=== PATIENT | female | born 1975 | race African-American/Black ===

== ENCOUNTER 2018-01-09 19:10 | Inpatient (IN) ==
--- NOTE | 2018-01-09 19:46 | ED ---
History of Present Illness Primary Care Physician: NOT REQUIRED History of Present Illness: HPI: 42 year-old , with YAO of 04-24-2018 therefore at 25 weeks EGA. Presents with vaginal spotting that started today at 7:20 PM. Patient states that she wants to the bathroom and wiped and saw a speck of blood. She then voided bloody urine. Confirms sexual intercourse on Tuesday. She denies any contractions or gush of fluid. She confirms movements. She is morbidly Obese. Denies any abdominal pain. care: Seen by Dr. Greene starting at 14 weeks. Patient has had an uncomplicated course. No UTIs. Denies a diagnosis of Gestational diabetes and preeclampsia. OB Hx: Previous (15 weeks ago). No Placenta Previa. [employer]IC[employer] Hx: No abnormal Paps, no history of STDs. PMH: Sickle cell trait, history of fibroid (5.25 x 7.7 cm) Allergies: NKDA Meds: vitamins. Social history: No tobacco, alcohol or drug abuse during pregancy. Review of Systems All other systems reviewed negative except as stated in HPI PMFSH - History History Provided By: Patient - Medical History Medical History: Medical History (Last Updated 10/05/17 @ 06:03 by Waldemar Contreras) Patient denies medical problems Medications and Allergies Allergies Allergy/AdvReac Type Severity Reaction Status Date / Time No Known Allergies Allergy none Uncoded 01/09/18 21:10 Home Medications Medication Instructions Recorded Confirmed Type PNV cmb#95-ferrous fumarate-FA 1 tab PO DAILY 01/09/18 01/09/18 History [] aspirin [Aspirin Low Dose] 1 tab PO DAILY 01/09/18 01/09/18 History ferrous sulfate [Iron (ferrous 1 tab PO BID 01/09/18 01/09/18 History sulfate)] Exam Narrative: GENERAL: Well-nourished, well-developed patient. SKIN: Warm and dry. HEAD: Normocephalic and atraumatic. EYES: No scleral icterus. No injection or drainage. ENT: No nasal drainage noted. Mucous membranes pink. Airway patent. NECK: Supple, trachea midline. No JVD.. ABDOMEN/GI: Abdomen soft, non-tender, bowel sounds present, no rebound, no guarding Gravid to 25 weeks size GENITOURINARY: External Genitalia: intact and normal in appearance Cervix: posterior, thick, closed. Presentation: breech via ultrasound Membranes: ruptured. Uterine Contractions: none. Results - Labs CBC & Chem 7: 01/09/18 20:40 Assessment and Plan - Diagnosis (1) Vaginal spotting Code(s): N93.9 - Abnormal uterine and vaginal bleeding, unspecified Status: Acute Plan: Vaginal spotting initiated at 720 this evening. Last sexual intercourse on Tuesday night. No history of placenta previa. No abdominal cramps. -Speculum exam shows large pool of bloody water. Cervix closed. -OB ultrasound shows low fluid around baby. PPROM. -Admit to labor and delivery. -Magnesium sulfate given for neuro protection. -PPROM protocol antibiotics started on azithromycin and ampicillin. Steroids given for lung maturity. -Initiate transferred to tertiary care facility tomorrow. (2) premature rupture of membranes Code(s): O42.919 - premature rupture of membranes, unspecified as to length of time between rupture and onset of labor, unspecified trimester Status: Acute Plan: See plan above. Discharge Plan - Physicians Team Primary Care Provider: NOT REQUIRED, Attending Provider: Lucio Kennedy
[2018-01-09] MEDS ORDERED: Mag Sulf/Water 4 gm/100 ml 100 ML IV.SIG ONE ×2 (20:24→20:32)
[2018-01-09] MEDS ORDERED: Zolpidem Tartrate 5 MG Tablet PO PRN (20:24)
[2018-01-09] MEDS ORDERED: Acetaminophen 325 MG Tablet PO PRN (20:24)
[2018-01-09] MEDS ORDERED: Mag Sulf/Water 40 gm/1000 ml 40 GM/1,000 ML BAG IV.CONT ONE (20:32)
[2018-01-09] MEDS ORDERED: Betamethasone Sod Phos/Acetate Inj 30 MG/5 ML Vial IM ONE (20:45)
[2018-01-09] MEDS ORDERED: Mag Sulf/Water 40 gm/1000 ml 40 GM/1,000 ML BAG IV.CONT SCH (21:00)
[2018-01-09 21:32] LABS: Baso % (Auto) 0.2 % (0.0-2.0); Eos # (Auto) 0.2 th/mm3 (0.0-0.4); Eos % (Auto) 1.8 % (0.0-4.0); Hematocrit 36.5 % (35.0-46.0); Hemoglobin 12.4 gm/dL (11.6-15.3); Lymph # (Auto) 1.8 th/mm3 (1.0-4.8); Lymph % (Auto) 18.4 % (9.0-44.0); Mean Corpuscular HGB Conc 33.9 % (32.0-36.0); Mean Corpuscular Hemoglobin 27.6 pg (27.0-34.0); Mean Corpuscular Volume 81.4 fL (80.0-100.0); Mean Platelet Volume 8.4 fL (7.0-11.0); Mono # (Auto) 0.8 th/mm3 (0.0-0.9); Mono % (Auto) 7.6 % (0.0-8.0); Neut # (Auto) 7.1 th/mm3 (1.8-7.7); Platelet Count 218 th/mm3 (150-450); Red Blood Count 4.48 mil/mm3 (4.00-5.30); Red Cell Distribution Width 29.8 % (11.6-17.2); White Blood Count 9.9 th/mm3 (4.0-11.0)
[2018-01-09] MEDS ORDERED: Azithromycin Inj 500 MG in Sodium Chlor 0.9% Inj 250 ML IV.SIG SCH (22:00)
[2018-01-09 22:19] LABS: Bilirubin,Urine Negative (Negative); Clarity,Urine Clear (Clear); Color,Urine Straw (Yellw/Straw); Glucose,Urine (UA) Negative (Negative); Leukocyte Esterase,Urine Negative (Negative); Mucus,Urine Few /lpf (Occasional); Nitrite,Urine Negative (Negative); Specific Gravity,Urine 1.008 (1.002-1.035); Squamous Epithelial Cell,Urine <1 /hpf (0-5)
[2018-01-09 22:20] LABS: Dimorphic RBC Present
[2018-01-10 03:30] LABS: Amphetamine Urine With Conf Neg (Neg); Benzodiazepine Urine With Conf Neg (Neg)
[2018-01-10 05:57] LABS: Baso % (Auto) 0.1 % (0.0-2.0); Eos % (Auto) 0.1 % (0.0-4.0); Hematocrit 34.7 % (35.0-46.0); Hemoglobin 12.2 gm/dL (11.6-15.3); Lymph # (Auto) 0.9 th/mm3 (1.0-4.8); Lymph % (Auto) 8.5 % (9.0-44.0); Mean Corpuscular HGB Conc 35.2 % (32.0-36.0); Mean Corpuscular Hemoglobin 28.2 pg (27.0-34.0); Mean Corpuscular Volume 80.2 fL (80.0-100.0); Mean Platelet Volume 8.4 fL (7.0-11.0); Mono # (Auto) 0.3 th/mm3 (0.0-0.9); Mono % (Auto) 2.3 % (0.0-8.0); Neut # (Auto) 9.7 th/mm3 (1.8-7.7); Platelet Count 207 th/mm3 (150-450); Red Blood Count 4.33 mil/mm3 (4.00-5.30); Red Cell Distribution Width 29.1 % (11.6-17.2); White Blood Count 10.9 th/mm3 (4.0-11.0)
[2018-01-10 06:24] VITALS: RESP 18
[2018-01-10 07:22] VITALS: TEMP 98.2
[2018-01-10 07:48] LABS: Dimorphic RBC Present; Platelet Estimate Normal (Normal)
[2018-01-10 07:49] LABS: Platelet Morphology Normal (Normal)
--- NOTE | 2018-01-10 08:13 | P.OBANTE ---
Subjective - Diagnosis (1) Vaginal spotting Diagnosis: Principal (2) premature rupture of membranes Diagnosis: Principal Antepartum ROS: Reports: movement normal Denies: New complaints, Loss of fluid, Contractions Objective Vital Signs and I&O: Vital Signs 01/09/18 19:39 01/09/18 19:45 01/09/18 20:42 Temperature 99.8 F H Pulse Rate 89 80 Respiratory Rate 18 Blood Pressure 149/87 H 130/61 01/09/18 20:45 01/09/18 20:55 01/09/18 21:05 Temperature Pulse Rate 78 75 75 Respiratory Rate 18 Blood Pressure 129/71 125/65 129/67 01/09/18 21:16 01/09/18 21:25 01/09/18 22:37 Temperature Pulse Rate 75 75 79 Respiratory Rate 14 Blood Pressure 129/67 140/73 127/99 H 01/09/18 23:01 01/10/18 00:01 01/10/18 02:01 Temperature 97.5 F L Pulse Rate 77 79 81 Respiratory Rate 18 17 Blood Pressure 140/81 143/83 H 130/82 01/10/18 02:25 01/10/18 03:01 01/10/18 04:10 Temperature 98.0 F Pulse Rate 78 106 H Respiratory Rate 14 15 Blood Pressure 130/80 115/73 01/10/18 05:00 01/10/18 05:15 01/10/18 06:01 Temperature Pulse Rate 76 81 Respiratory Rate 15 Blood Pressure 126/81 127/69 01/10/18 06:23 01/10/18 07:21 01/10/18 08:01 Temperature 98.2 F Pulse Rate 83 77 Respiratory Rate 18 18 Blood Pressure 135/87 140/84 Intake & Output 01/09/18 01/10/18 01/10/18 18:59 06:59 18:59 Weight 136.078 kg Lab and Micro Results: Laboratory Results - last 24 hr 01/09/18 01/09/18 01/09/18 20:40 20:50 21:04 WBC 9.9 RBC 4.48 Hgb 12.4 Hct 36.5 MCV 81.4 MCH 27.6 MCHC 33.9 RDW 29.8 H Plt Count 218 MPV 8.4 Prelim Diff (Auto) Slide review pending Neut % (Auto) 72.0 H Lymph % (Auto) 18.4 Mcpherson % (Auto) 7.6 Eos % (Auto) 1.8 Baso % (Auto) 0.2 Neut # (Auto) 7.1 Lymph # (Auto) 1.8 Mcpherson # (Auto) 0.8 Eos # (Auto) 0.2 Baso # (Auto) 0.0 WBC Differential . Diff Scan Auto diff confirmed Differential Comment . Platelet Estimate Platelet Morphology Dimorphic RBCs Present H Urine Color Straw Urine Clarity Clear Urine pH 7.0 Ur Specific Roulette 1.008 Urine Protein Negative Urine Glucose (UA) Negative Urine Ketones Negative Urine Occult Blood Small H Urine Nitrate Negative Urine Bilirubin Negative Urine Urobilinogen Less than 2 Ur Leukocyte Esterase Negative Urine RBC Less than 1 Urine WBC 1 Ur Squamous Epith Cells <1 Urine Mucus Few H Micro UA Comment Cath-culture not ind Ur Microscopic Review Not Reportable Urine Culture Comments Cath-cult not ind Urine Opiates Screen Ur Barbiturates Screen Ur Amphetamine Screen U Benzodiazepines Scrn Urine Cocaine Screen U Cannabinoids Screen Chlam trachomat DNA PCR N.gonorrhoeae DNA (PCR) Group B Strep (PCR) Negative 01/09/18 01/09/18 01/10/18 21:04 21:04 05:07 WBC 10.9 RBC 4.33 Hgb 12.2 Hct 34.7 L MCV 80.2 MCH 28.2 MCHC 35.2 RDW 29.1 H Plt Count 207 MPV 8.4 Prelim Diff (Auto) Slide review pending Neut % (Auto) 89.0 H Lymph % (Auto) 8.5 L Mcpherson % (Auto) 2.3 Eos % (Auto) 0.1 Baso % (Auto) 0.1 Neut # (Auto) 9.7 H Lymph # (Auto) 0.9 L Mcpherson # (Auto) 0.3 Eos # (Auto) 0.0 Baso # (Auto) 0.0 WBC Differential . Diff Scan Auto diff confirmed Differential Comment . Platelet Estimate Normal Platelet Morphology Normal Dimorphic RBCs Present H Urine Color Urine Clarity Urine pH Ur Specific Roulette Urine Protein Urine Glucose (UA) Urine Ketones Urine Occult Blood Urine Nitrate Urine Bilirubin Urine Urobilinogen Ur Leukocyte Esterase Urine RBC Urine WBC Ur Squamous Epith Cells Urine Mucus Micro UA Comment Ur Microscopic Review Urine Culture Comments Urine Opiates Screen Neg Ur Barbiturates Screen Neg Ur Amphetamine Screen Neg U Benzodiazepines Scrn Neg Urine Cocaine Screen Neg U Cannabinoids Screen Neg Chlam trachomat DNA PCR Not detected N.gonorrhoeae DNA (PCR) Not detected Group B Strep (PCR) Physical Exam: GENERAL: Well-nourished, well-developed patient. CARDIOVASCULAR: Regular rate and rhythm without murmurs, gallops, or rubs. RESPIRATORY: Breath sounds equal bilaterally. No accessory muscle use. ABDOMEN/GI: Abdomen soft, non-tender. Fundus: 25 GENITOURINARY: External Genitalia: intact and normal in appearance Last exam on admission: cervix closed FHT's: no cxns on monitor, difficult to trace baby at 25wks EXTREMITIES: No cyanosis or edema, non-tender, without signs of DVT. Assessment and Plan - Diagnosis (1) Vaginal spotting Code(s): N93.9 - Abnormal uterine and vaginal bleeding, unspecified Status: Acute Plan: Vaginal spotting initiated at 720 on 01/09/18. Last sexual intercourse on Tuesday night. No history of placenta previa. No abdominal cramps. -On admission: Speculum exam shows large pool of bloody water. Cervix closed. -OB ultrasound shows low fluid around baby. PPROM. -Magnesium sulfate given for neuro protection (01/09 @ 9PM) -PPROM protocol antibiotics started on azithromycin and ampicillin (01/09 @ 11PM ) Steroids given for lung maturity (1st dose of beta 01/09 @ 11PM) -Initiate transferred to tertiary care facility today (2) premature rupture of membranes Code(s): O42.919 - premature rupture of membranes, unspecified as to length of time between rupture and onset of labor, unspecified trimester Status: Acute Plan: See plan above.
[2018-01-10] MEDS ORDERED: Prenatal Vit/Ca/Iron/Folic Acid Tablet PO SCH (09:00)
[2018-01-10 09:08] VITALS: BP 137/70; PULSE 82
== END 2018-01-10 09:32 | disposition short-term general hospital (02) ==
LOC: HOBED 19:10 → H2E 20:33
PROVIDERS: ADMIT Obstetrics & Gynecology Maternal & Fetal Medicine; ATTEND Obstetrics & Gynecology Maternal & Fetal Medicine